=== PATIENT | male | born 1970 | race Caucasian/White ===

== ENCOUNTER 2021-12-04 20:36 | Emergency (ER) | payer MEDICAID ==
[~2021-12-04] VITALS: Ht 170.2 cm; Wt 77.1 kg
[2021-12-04 21:05] VITALS: BP_SYST 148
--- NOTE | 2021-12-04 21:09 | NUR ---
PT BIB [employer]UGHTERS AFTER PT FELL FROM LADDER AT WORK, 6FT FALL. PT REPORTS LEFT RIB, BACK, LEFT HAND, AND HEAD PAIN. BLOOD NOTED ON POSTERIOR HEAD, UNABLE TO SEE LAC AND BLEEDING IS CONTROLLED.
[2021-12-04] MEDS ORDERED: IBUPROFEN 600 MG TABLET PO ONE (22:15)
--- NOTE | 2021-12-04 23:10 | NUR ---
Patient to ER bed 03 to gown for evaluation. Side rails up. Report given to Sandy TODD.
--- NOTE | 2021-12-04 23:15 | NUR ---
PT AAOX4, S/P 6 FOOT FALL FROM A LADDER AT WORK. PT W/ C/O LEFT RIB, BACK, LEFT HAND, AND HEAD PAIN. BLOOD NOTED ON REAR OF HEAD. BLOODY SHOW, HOWEVER, BLEEDING IS CONTROLLED AT PRESENT. PENDING MD OTERO / SARABJIT.
--- NOTE | 2021-12-05 00:36 | NUR ---
layla wrap applied to patient's left wrist. pms present before and after layla wrap application
[2021-12-05] MEDS ORDERED: KETOROLAC TROMETHAMINE 60 MG/2 ML VIAL IM ONE (00:45)
[2021-12-05] MEDS ORDERED: NAPR-1172 PO (01:08)
[2021-12-05 01:17] VITALS: BP_SYST 133
--- NOTE | 2021-12-05 01:17 | NUR ---
Patient given written and verbal discharge instructions and verbalizes understanding. ER MD discussed with patient the results and treatment provided. Patient in stable condition. ID arm band removed. Rx for naproxen 500 mg PO given. Patient educated on pain management and to follow up with PMD. Pain Scale 2/10 on d/c. Opportunity for questions provided and answered.
[2021-12-07] MEDS ORDERED: HYDR-3917 PO (11:51)
== END 2021-12-05 01:17 | disposition home or self-care (01) ==
LOC: SED 20:36
DX: S52.515A Nondisplaced fracture of left radial styloid process, initial encounter for closed fracture (principal); R51.9 Headache, unspecified; Z79.899 Other long term (current) drug therapy; W11.XXXA Fall on and from ladder, initial encounter; Y93.89 Activity, other specified; Y92.89 Other specified places as the place of occurrence of the external cause; Y99.8 Other external cause status
CPT/HCPCS: 99284; 70450; 73080; 73100; 72125; 71250; 76376 ×2; 96372; J1885

== ENCOUNTER 2021-12-07 13:37 | Emergency (ER) | payer MEDICAID ==
[~2021-12-07] VITALS: Ht 170.2 cm; Wt 90.7 kg
[~2021-12-07 13:37] MED LIST: HYDR-3917 PO; NAPR-1172 PO
[2021-12-07 14:00] VITALS: BP_SYST 139
--- NOTE | 2021-12-07 14:00 | NUR ---
Patient to ER bed triage to gown for evaluation.
--- NOTE | 2021-12-07 14:01 | NUR ---
ER at bedside examining patient.
--- NOTE | 2021-12-07 14:03 | NUR ---
Colles splint applied to L wrist. + pulse noted. Capillary refill <3 seconds. Patient has ability to move non-splinted digits. Has sensation present to affected site. Skin color within normal limits. Applied for pain management control.
[2021-12-07 14:07] VITALS: BP_SYST 139
--- NOTE | 2021-12-07 14:07 | NUR ---
Patient given written and verbal discharge instructions and verbalizes understanding. ER MD discussed with patient the results and treatment provided. Patient in stable condition. ID arm band removed. Rx of norco given. Patient educated on pain management and to follow up with PMD. Pain Scale 4. Opportunity for questions provided and answered. Medication side effect fact sheet provided.
== END 2021-12-07 14:07 | disposition home or self-care (01) ==
LOC: SED 13:37
DX: S52.532A Colles' fracture of left radius, initial encounter for closed fracture (principal); Z79.899 Other long term (current) drug therapy; W19.XXXA Unspecified fall, initial encounter; Y93.89 Activity, other specified; Y92.89 Other specified places as the place of occurrence of the external cause; Y99.8 Other external cause status
CPT/HCPCS: 99283